=== PATIENT | male | born 1970 | race Caucasian/White ===

== ENCOUNTER 2022-05-18 07:02 | Observation (INO) ==
[2022-05-18] MEDS ORDERED: ONDANSETRON ODT 4 MG TABLET PO STA (07:20)
[2022-05-18] MEDS ORDERED: LORazepam 2 MG/1 ML VIAL IV STA (07:20)
[2022-05-18] MEDS ORDERED: SODIUM CHLORIDE 0.9% 1,000 ML IV STA ×3 (07:52→16:48)
[2022-05-18 08:31] LABS: Basophils % 0.2 % (0.0-0.8); Eosinophils % 0.5 % (0.00-10.9); Hematocrit 43.1 VOL% (42.0-52.0); Hemoglobin 14.8 GM/DL (14.0-18.0); Immature Granulocytes % 0.5 %; Immature Granulocytes Absolute 0.02 #; Lymphocytes # 0.4 10*3/uL (1.4-4.0); Lymphocytes % 9.2 % (21.2-54.2); Mean Corpuscular HGB Conc 34.3 GM/DL (32-36); Mean Corpuscular Volume 90.5 FL (87-102); Mean Platelet Volume 10.8 FL (9.6-12.0); Monocytes % 0.5 % (1.7-12.7); Neutrophils % 89.1 % (38.7-73.9); Platelet Count 218 T/CUMM (130-400); Red Blood Count 4.76 MC/CUMM (3.8-5.5); Red Cell Distribution Width 12.6 % (9.3-17.3); White Blood Count 4.3 T/CUMM (4-12)
[2022-05-18 09:00] LABS: Albumin 3.6 G/DL (3.4-5.0); Bilirubin,Total 1.4 MG/DL (0.20-1.00); Calcium 9.1 MG/DL (8.5-10.1); Osmolality,Calculated 275.8 MOS/KG (273-304); Potassium 3.7 MMOL/L (3.5-5.1)
[2022-05-18 10:51] LABS: Barbiturates Screen,Urine Negative (Negative); Benzodiazepines Screen,Urine Negative (Negative); Cannabinoid Screen,Urine Positive (Negative); Opiate Screen,Urine Negative (Negative); Phencyclidine Screen,Urine Negative (Negative)
[2022-05-18] MEDS ORDERED: METOPROLOL TARTRATE 5 MG/5 ML VIAL IV STA (13:31)
[2022-05-18] MEDS ORDERED: ENOXAPARIN 80 MG/0.8 ML SYRINGE SUBCUT SCH (14:00)
[2022-05-18] MEDS ORDERED: ACETAMINOPHEN 325 MG TABLET PO PRN (14:01)
[2022-05-18] MEDS ORDERED: ALBUTEROL 2.5 MG/3 ML NEB RESP TX PRN (14:01)
[2022-05-18] MEDS ORDERED: ONDANSETRON 4 MG/2 ML VIAL IV PRN (14:01)
[2022-05-18] MEDS ORDERED: hydrALAZINE 20 MG/1 ML VIAL IV PRN (14:01)
[2022-05-18] MEDS ORDERED: DOCUSATE SODIUM 100 MG CAPSULE PO PRN (14:01)
[2022-05-18] MEDS ORDERED: SODIUM CHLORIDE 0.9% 1,000 ML IV SCH (14:30)
[2022-05-18] MEDS: NITROGLYCERIN 2% OINT 1 INCH/GM PACK TOP SCH ×2 (15:12→21:52)
[2022-05-18 15:13] LABS: CKMB % 0.29 %
[2022-05-18 15:19] LABS: High Sensitive Troponin I* 310.8 ng/L (0-78)
[2022-05-18] MEDS ORDERED: SODIUM CHLORIDE 0.9% 500 ML IV STA (15:56)
[2022-05-18] MEDS: SODIUM CHLORIDE 0.9% 1,000 ML IV SCH ×2 (16:02→23:01)
[2022-05-18] MEDS: METOPROLOL TARTRATE 25 MG TABLET PO SCH (21:52)
[2022-05-18] MEDS: LORazepam 2 MG/1 ML VIAL IV PRN (23:01)
[2022-05-19] MEDS: NITROGLYCERIN 2% OINT 1 INCH/GM PACK TOP SCH ×2 (02:59→08:07)
[2022-05-19 06:32] LABS: Basophils % 0.2 % (0.0-0.8); Hematocrit 41.6 VOL% (42.0-52.0); Hemoglobin 13.7 GM/DL (14.0-18.0); Immature Granulocytes % 1.9 %; Immature Granulocytes Absolute 0.35 #; Lymphocytes # 0.9 10*3/uL (1.4-4.0); Lymphocytes % 4.8 % (21.2-54.2); Mean Corpuscular HGB Conc 32.9 GM/DL (32-36); Mean Corpuscular Volume 96.3 FL (87-102); Mean Platelet Volume 11.9 FL (9.6-12.0); Monocytes % 5.7 % (1.7-12.7); Neutrophils % 87.4 % (38.7-73.9); Platelet Count 76 T/CUMM (130-400); Red Blood Count 4.32 MC/CUMM (3.8-5.5); Red Cell Distribution Width 13.2 % (9.3-17.3); White Blood Count 18.1 T/CUMM (4-12)
[2022-05-19 06:37] LABS: Band Neutrophils 8 % (0-10); Lymphocytes 6 % (20-55); Platelet Estimate Decreased; Total Cells Counted 100
[2022-05-19 06:55] LABS: Albumin 2.5 G/DL (3.4-5.0); Bilirubin,Total 1.4 MG/DL (0.20-1.00); Calcium 7.3 MG/DL (8.5-10.1); Osmolality,Calculated 275.7 MOS/KG (273-304); Potassium 4.3 MMOL/L (3.5-5.1); Risk Ratio 2.41; Thyroid Stimulating Hormone 1.62 uIU/ml (0.358-3.74); Total Protein 5.4 G/DL (6.4-8.2)
[2022-05-19] MEDS ORDERED: MAGNESIUM SULF RIDER 4 GM/100 ML PREMIX IV ONE (08:01)
[2022-05-19] MEDS: METOPROLOL TARTRATE 25 MG TABLET PO SCH ×2 (08:07→21:00)
[2022-05-19] MEDS: ASPIRIN EC 81 MG TABLET PO SCH (08:50)
[2022-05-19] MEDS: SODIUM CHLORIDE 0.9% 1,000 ML IV SCH ×3 (08:50→23:10)
[2022-05-19] MEDS: NICOTINE 21 MG/24 HR PATCH TRANSDERM SCH (08:50)
[2022-05-19] MEDS: PANTOPRAZOLE 40 MG TABLET PO SCH (08:50)
[2022-05-19] MEDS ORDERED: ROSUVASTATIN 20 MG TABLET PO SCH (09:00)
[2022-05-19 10:23] LABS: Hepatitis B Core IgM Quant 0.05 Index; Hepatitis B Surface Ag Quant < 0.10 Index; Hepatitis B Surface Ag Result Non-Reactive (NonReactive); Hepatitis C Virus Ab Quant 5.19 Index
[2022-05-19 10:39] LABS: CKMB % 0.15 %
[2022-05-19] MEDS ORDERED: MAGNESIUM SULF RIDER 2 GM/50 ML PREMIX IV ONE (12:00)
[2022-05-19] MEDS: ENOXAPARIN 40 MG/0.4 ML SYRINGE SUBCUT SCH (14:26)
[2022-05-20 05:35] LABS: Basophils % 0.1 % (0.0-0.8); Eosinophils # 0.1 10*3/uL (0.0-0.87); Eosinophils % 0.4 % (0.00-10.9); Hematocrit 32.8 VOL% (42.0-52.0); Immature Granulocytes % 3.7 %; Immature Granulocytes Absolute 0.58 #; Lymphocytes % 6.2 % (21.2-54.2); Mean Corpuscular HGB Conc 34.1 GM/DL (32-36); Mean Corpuscular Volume 91.9 FL (87-102); Mean Platelet Volume 11.7 FL (9.6-12.0); Monocytes # 0.9 10*3/uL (0.11-0.8); Monocytes % 5.8 % (1.7-12.7); Neutrophils % 83.8 % (38.7-73.9); Red Blood Count 3.57 MC/CUMM (3.8-5.5); Red Cell Distribution Width 13.2 % (9.3-17.3); White Blood Count 15.7 T/CUMM (4-12)
[2022-05-20 05:37] LABS: Hemoglobin 11.2 GM/DL (14.0-18.0); Platelet Count 107 T/CUMM (130-400)
[2022-05-20] MEDS: LORazepam 2 MG/1 ML VIAL IV PRN (05:51)
[2022-05-20 06:08] LABS: Band Neutrophils 6 % (0-10); Lymphocytes 8 % (20-55); Total Cells Counted 100
[2022-05-20 06:11] LABS: Platelet Estimate Adequate
[2022-05-20 06:21] LABS: Albumin 2.4 G/DL (3.4-5.0); Bilirubin,Total 1.5 MG/DL (0.20-1.00); CKMB % 0.1 %; Calcium 7.4 MG/DL (8.5-10.1); Osmolality,Calculated 271.8 MOS/KG (273-304); Total Protein 5.7 G/DL (6.4-8.2)
[2022-05-20 06:23] LABS: High Sensitive Troponin I* 216.2 ng/L (0-78)
[2022-05-20] MEDS: SODIUM CHLORIDE 0.9% 1,000 ML IV SCH ×4 (07:10→23:05)
[2022-05-20] MEDS: NICOTINE 21 MG/24 HR PATCH TRANSDERM SCH (08:34)
[2022-05-20] MEDS: ASPIRIN EC 81 MG TABLET PO SCH (08:35)
[2022-05-20] MEDS: METOPROLOL TARTRATE 25 MG TABLET PO SCH ×2 (08:35→20:33)
[2022-05-20] MEDS: PANTOPRAZOLE 40 MG TABLET PO SCH (08:35)
[2022-05-20] MEDS: ENOXAPARIN 40 MG/0.4 ML SYRINGE SUBCUT SCH (14:41)
[2022-05-21 06:21] LABS: Basophils % 0.1 % (0.0-0.8); Eosinophils # 0.1 10*3/uL (0.0-0.87); Eosinophils % 0.6 % (0.00-10.9); Hematocrit 34.8 VOL% (42.0-52.0); Hemoglobin 11.8 GM/DL (14.0-18.0); Immature Granulocytes % 0.6 %; Immature Granulocytes Absolute 0.06 #; Lymphocytes # 1.3 10*3/uL (1.4-4.0); Lymphocytes % 12.4 % (21.2-54.2); Mean Corpuscular HGB Conc 33.9 GM/DL (32-36); Mean Corpuscular Volume 90.9 FL (87-102); Mean Platelet Volume 11.3 FL (9.6-12.0); Monocytes # 0.6 10*3/uL (0.11-0.8); Neutrophils % 80.3 % (38.7-73.9); Platelet Count 127 T/CUMM (130-400); Red Blood Count 3.83 MC/CUMM (3.8-5.5); Red Cell Distribution Width 12.9 % (9.3-17.3); White Blood Count 10.2 T/CUMM (4-12)
[2022-05-21 06:34] LABS: Albumin 2.3 G/DL (3.4-5.0); Bilirubin,Total 1.6 MG/DL (0.20-1.00); Osmolality,Calculated 279.3 MOS/KG (273-304); Potassium 3.6 MMOL/L (3.5-5.1); Total Protein 5.9 G/DL (6.4-8.2)
[2022-05-21 06:37] LABS: PT Patient Result 11.4 SECS (10.1-12.1); Partial Thromboplastin Time 30.2 SECS (23.7-32.9)
[2022-05-21 06:51] LABS: Anisocytosis 1+; Platelet Estimate Adequate
[2022-05-21 08:17] VITALS: BP 138/75
[2022-05-21] MEDS: ASPIRIN EC 81 MG TABLET PO SCH (09:38)
[2022-05-21] MEDS: PANTOPRAZOLE 40 MG TABLET PO SCH (09:38)
[2022-05-21] MEDS: METOPROLOL TARTRATE 25 MG TABLET PO SCH (09:39)
[2022-05-21] MEDS: SODIUM CHLORIDE 0.9% 1,000 ML IV SCH (09:47)
[2022-05-21] MEDS: NICOTINE 21 MG/24 HR PATCH TRANSDERM SCH (09:48)
== END 2022-05-21 12:10 | disposition home or self-care (01) ==
LOC: N.ED 07:02 → N.EDINP 07:02 → SUATTDRO 14:01 → N.TELES 16:02
PROVIDERS: ADMIT Internal Medicine Geriatric Medicine; ATTEND Internal Medicine